=== PATIENT | female | born 1935 | race Hispanic/Latino ===

== ENCOUNTER 2020-10-07 00:07 | Inpatient (IN) | payer MEDICARE ==
[~2020-10-07] VITALS: Ht 152.4 cm; Wt 68.0 kg
[2020-10-07 01:36] LABS: BASOPHILS % (AUTO) 0.3 % (0.0-5.0); LYMPHOCYTES % (AUTO) 7.2 % (21.0-51.0); MEAN CORPUSCULAR HEMOGLOBIN 30.8 pg (27.0-33.0); MEAN CORPUSCULAR HGB CONC 31.8 g/dL (32.0-36.0); MEAN CORPUSCULAR VOLUME 96.8 fL (79-99); MONOCYTES % (AUTO) 8.6 % (3.0-13.0); NEUTROPHILS % (AUTO) 83.4 % (40.0-77.0); PLATELET COUNT (AUTO) 174 K/uL (130-400); RED BLOOD CELL COUNT(AUTO) 3.41 MIL/uL (4.00-5.50); RED CELL DISTRIBUTION WIDTH 13.3 % (11.0-15.5); WHITE BLOOD COUNT (AUTO) 12.2 K/uL (4.8-10.8)
[2020-10-07 01:42] LABS: APPEARANCE,URINE Clear (CLEAR); BILIRUBIN,URINE Small (NEGATIVE); COLOR,URINE Dark Yellow (YELLOW); GLUCOSE, URINE (UA) Negative (NEGATIVE); KETONES,URINE Trace mg/dL (NEGATIVE); LEUKOCYTE ESTERASE ,URINE Moderate (NEGATIVE); NITRATE,URINE Negative (NEGATIVE); OCCULT BLOOD,URINE Negative (NEGATIVE); PH,URINE 5.5 (5.0-8.0); PROTEIN,URINE POS 2+ mg/dL (NEGATIVE)
[2020-10-07 01:46] LABS: CREATININE 1.2 mg/dL (0.5-1.5); POTASSIUM 3.6 mmol/L (3.5-5.1)
[2020-10-07 01:56] LABS: RBC,URINE 0-1 /HPF (0-1)
[2020-10-07 01:56] LABS: ALBUMIN 3.5 g/dL (3.5-5.0); BILIRUBIN,TOTAL 1.1 mg/dL (0.2-1.0); TOTAL PROTEIN, SERUM 7.3 g/dL (6.0-8.3)
[2020-10-07 01:57] LABS: BACTERIA,URINE Rare /HPF (None Seen); SQUAMOUS EPITHELIAL CELL,UR Moderate /HPF (0-2)
[2020-10-07] MEDS ORDERED: EZET-57 PO (02:19)
[2020-10-07] MEDS ORDERED: METO-391 PO (02:21)
[2020-10-07] MEDS ORDERED: FURO20TA4 PO (02:21)
[2020-10-07] MEDS ORDERED: ISOS30TA92 PO (02:22)
[2020-10-07] MEDS ORDERED: LEVO75CA5 PO (02:24)
[2020-10-07] MEDS ORDERED: ERGO500093 PO (02:24)
[2020-10-07] MEDS ORDERED: RANO500T6 PO (02:25)
[2020-10-07] MEDS ORDERED: ASPI-1197 PO (02:26)
[2020-10-07] MEDS ORDERED: PANT40TA54 PO (02:26)
[2020-10-07] MEDS ORDERED: IOHEXOL-350 75 ML VIAL IV ONE (03:00)
[2020-10-07 06:20] VITALS: BP 128/85
[2020-10-07] MEDS ORDERED: LACTULOSE 20 GM/30 ML UDCUP PO PRN (07:00)
[2020-10-07] MEDS ORDERED: ONDANSETRON 4MG INJ IV PRN (07:00)
[2020-10-07] MEDS ORDERED: ACETAMINOPHEN 325 MG TAB PO PRN ×2 (07:00)
[2020-10-07] MEDS ORDERED: MORPHINE 2 MG SYG IV PRN (07:00)
[2020-10-07 07:44] LABS: INR 1.23 (0.85-1.15); PROTHROMBIN TIME 13.2 SEC (9.6-11.6)
[2020-10-07 07:45] LABS: PARTIAL THROMBOPLASTIN TIME 27.6 SEC (26.3-35.5)
[2020-10-07] MEDS: PANTOPRAZOLE 40 MG/VIAL IVP SCH ×3 (07:58→14:07)
[2020-10-07 08:06] VITALS: BP 120/75
[2020-10-07 08:16] LABS: HEMOGLOBIN A1C 5.7 % (4.0-6.0)
[2020-10-07 10:27] VITALS: BP 120/75
[2020-10-07] MEDS: 0.9%NACL 1000ML 1,000 ML IV SCH ×2 (11:04→15:42)
[2020-10-07 12:00] VITALS: BP 118/66
[2020-10-07] MEDS ORDERED: 0.9%NACL 50ML 50 ML IV ONE (12:58)
[2020-10-07] MEDS: ZOSYN 3.375GM+NS 50ML 50 ML IV SCH ×2 (14:01→23:00)
[2020-10-07 15:48] LABS: CRP QUANTITATIVE 97.6 mg/L (0.00-9.0)
[2020-10-07 16:08] VITALS: BP 106/80
[2020-10-07 16:34] LABS: HEMATOCRIT 30.9 % (36-48)
[2020-10-07 19:35] VITALS: BP 118/56
[2020-10-08] VITALS (8 sets, daily range): BP systolic 120–139; BP diastolic 60–94
[2020-10-08] MEDS ORDERED: 0.9%NACL 100ML 100 ML ONE (01:34)
[2020-10-08] MEDS ORDERED: IOHEXOL 350 MG/ML 100ML INFUS..BTL IV ONE (06:53)
[2020-10-08 07:39] LABS: BASOPHILS % (AUTO) 0.3 % (0.0-5.0); EOSINOPHILS % (AUTO) 0.1 % (0.0-8.0); HEMATOCRIT 32.7 % (36-48); LYMPHOCYTES % (AUTO) 15.5 % (21.0-51.0); MEAN CORPUSCULAR HEMOGLOBIN 29.9 pg (27.0-33.0); MEAN CORPUSCULAR HGB CONC 30.6 g/dL (32.0-36.0); MEAN CORPUSCULAR VOLUME 97.9 fL (79-99); MONOCYTES % (AUTO) 8.9 % (3.0-13.0); PLATELET COUNT (AUTO) 157 K/uL (130-400); RED BLOOD CELL COUNT(AUTO) 3.34 MIL/uL (4.00-5.50); RED CELL DISTRIBUTION WIDTH 13.4 % (11.0-15.5); WHITE BLOOD COUNT (AUTO) 8.9 K/uL (4.8-10.8)
[2020-10-08] MEDS: ZOSYN 3.375GM+NS 50ML 50 ML IV SCH ×3 (07:58→21:00)
[2020-10-08 08:00] LABS: CREATININE 1.1 mg/dL (0.5-1.5); POTASSIUM 3.8 mmol/L (3.5-5.1)
[2020-10-08 10:07] LABS: CRP QUANTITATIVE 119.8 mg/L (0.00-9.0)
[2020-10-08 15:34] LABS: HEMATOCRIT 30.5 % (36-48)
[2020-10-08] MEDS ORDERED: 0.9%NACL 1000ML 1,000 ML IV ONE (16:23)
[2020-10-08] MEDS ORDERED: 0.9%NACL 50ML 50 ML IV ONE (16:23)
[2020-10-08] MEDS: SIMVASTATIN PO SCH (16:30)
[2020-10-08] MEDS: EZETIMIBE PO SCH (16:30)
[2020-10-08] MEDS: RANOLAZINE 500 MG TAB.SR.12H PO SCH (21:00)
[2020-10-08] MEDS ORDERED: ENOXAPARIN SODIUM 40 MG/0.4 ML SYRINGE SQ SCH (21:00)
[2020-10-08] MEDS: METOPROLOL SUCCINATE 50 MG TAB.SR.24H PO SCH (21:00)
[2020-10-08] MEDS: DOCUSATE SODIUM 100 MG CAP PO SCH (21:00)
[2020-10-09] VITALS (9 sets, daily range): BP systolic 97–128; BP diastolic 40–75
[2020-10-09] MEDS: ZOSYN 3.375GM+NS 50ML 50 ML IV SCH ×3 (05:00→20:31)
[2020-10-09 05:37] LABS: BASOPHILS % (AUTO) 0.3 % (0.0-5.0); EOSINOPHILS % (AUTO) 0.1 % (0.0-8.0); LYMPHOCYTES % (AUTO) 16.1 % (21.0-51.0); MEAN CORPUSCULAR HEMOGLOBIN 30.2 pg (27.0-33.0); MEAN CORPUSCULAR HGB CONC 31.6 g/dL (32.0-36.0); MEAN CORPUSCULAR VOLUME 95.7 fL (79-99); MONOCYTES % (AUTO) 9.9 % (3.0-13.0); NEUTROPHILS % (AUTO) 73.1 % (40.0-77.0); NUCLEATED RED BLOOD CELLS 0.3 % (0.0-0.19); PLATELET COUNT (AUTO) 163 K/uL (130-400); RED BLOOD CELL COUNT(AUTO) 3.24 MIL/uL (4.00-5.50); RED CELL DISTRIBUTION WIDTH 13.7 % (11.0-15.5); WHITE BLOOD COUNT (AUTO) 7.4 K/uL (4.8-10.8)
[2020-10-09] MEDS ORDERED: 0.9%NACL 50ML 50 ML IV ONE (05:49)
[2020-10-09 05:52] LABS: BILIRUBIN,TOTAL 1.3 mg/dL (0.2-1.0); CREATININE 0.9 mg/dL (0.5-1.5); CRP QUANTITATIVE 108.2 mg/L (0.00-9.0); POTASSIUM 3.9 mmol/L (3.5-5.1); TOTAL PROTEIN, SERUM 6.8 g/dL (6.0-8.3)
[2020-10-09] MEDS ORDERED: LEVOTHYROXINE 75 MCG TABLET PO SCH (09:00)
[2020-10-09] MEDS: METOPROLOL SUCCINATE 50 MG TAB.SR.24H PO SCH ×2 (09:08→20:30)
[2020-10-09] MEDS: RANOLAZINE 500 MG TAB.SR.12H PO SCH ×2 (09:08→20:30)
[2020-10-09] MEDS: ISOSORBIDE MONO 30MG SR TAB PO SCH (09:08)
[2020-10-09] MEDS: ASPIRIN 81MG CHEW TAB PO SCH (09:08)
[2020-10-09] MEDS: DOCUSATE SODIUM 100 MG CAP PO SCH ×2 (09:08→20:30)
[2020-10-09] MEDS: PANTOPRAZOLE 40 MG TAB DR PO SCH (09:08)
[2020-10-09] MEDS ORDERED: LIDOCAINE 5% TOPICAL PATCH TP SCH (15:00)
[2020-10-09 15:35] LABS: HEMATOCRIT 27.5 % (36-48)
[2020-10-09] MEDS: EZETIMIBE PO SCH (16:30)
[2020-10-09] MEDS: SIMVASTATIN PO SCH (16:30)
[2020-10-09] MEDS ORDERED: ENOXAPARIN SODIUM 30 MG/0.3 ML SQ SCH (21:00)
[2020-10-09] MEDS ORDERED: ENOXAPARIN SODIUM 40 MG/0.4 ML SYRINGE SQ SCH (21:00)
[2020-10-10 04:00] VITALS: BP 95/58
[2020-10-10] MEDS: ZOSYN 3.375GM+NS 50ML 50 ML IV SCH ×3 (04:15→20:35)
[2020-10-10] MEDS: LEVOTHYROXINE 75 MCG TABLET PO SCH (05:31)
[2020-10-10 05:40] LABS: BASOPHILS % (AUTO) 0.5 % (0.0-5.0); EOSINOPHILS % (AUTO) 0.2 % (0.0-8.0); MEAN CORPUSCULAR HEMOGLOBIN 30.5 pg (27.0-33.0); MEAN CORPUSCULAR VOLUME 98.4 fL (79-99); MONOCYTES % (AUTO) 11.3 % (3.0-13.0); NEUTROPHILS % (AUTO) 69.5 % (40.0-77.0); PLATELET COUNT (AUTO) 174 K/uL (130-400); RED BLOOD CELL COUNT(AUTO) 3.15 MIL/uL (4.00-5.50); RED CELL DISTRIBUTION WIDTH 13.8 % (11.0-15.5); WHITE BLOOD COUNT (AUTO) 6.2 K/uL (4.8-10.8)
[2020-10-10 08:07] VITALS: BP 125/78
[2020-10-10 09:05] LABS: % IRON SATURATION 11.3 % (22-44)
[2020-10-10 09:17] LABS: INR 1.34 (0.85-1.15); PROTHROMBIN TIME 14.2 SEC (9.6-11.6)
[2020-10-10 09:19] LABS: PARTIAL THROMBOPLASTIN TIME 30.3 SEC (26.3-35.5)
[2020-10-10] MEDS: METOPROLOL SUCCINATE 50 MG TAB.SR.24H PO SCH ×2 (10:08→20:35)
[2020-10-10] MEDS: ISOSORBIDE MONO 30MG SR TAB PO SCH (10:08)
[2020-10-10] MEDS: RANOLAZINE 500 MG TAB.SR.12H PO SCH ×2 (10:08→20:35)
[2020-10-10] MEDS: DOCUSATE SODIUM 100 MG CAP PO SCH ×2 (10:08→20:35)
[2020-10-10] MEDS: PANTOPRAZOLE 40 MG TAB DR PO SCH (10:08)
[2020-10-10] MEDS: ASPIRIN 81MG CHEW TAB PO SCH (10:08)
[2020-10-10] MEDS ORDERED: ENOXAPARIN SODIUM 30 MG/0.3 ML SQ SCH ×2 (10:30→21:00)
[2020-10-10 11:49] VITALS: BP 113/60
[2020-10-10] MEDS ORDERED: LIDOCAINE 5% TOPICAL PATCH TP SCH (16:00)
[2020-10-10] MEDS: EZETIMIBE PO SCH (16:30)
[2020-10-10] MEDS: SIMVASTATIN PO SCH (16:30)
[2020-10-10 16:56] VITALS: BP 113/55
[2020-10-10 20:00] VITALS: BP 106/73
[2020-10-11] VITALS: BP 104/63
[2020-10-11 04:00] VITALS: BP 128/69
[2020-10-11] MEDS: ZOSYN 3.375GM+NS 50ML 50 ML IV SCH ×3 (04:29→19:47)
[2020-10-11] MEDS: LEVOTHYROXINE 75 MCG TABLET PO SCH (06:03)
[2020-10-11 07:33] LABS: BASOPHILS % (AUTO) 0.4 % (0.0-5.0); EOSINOPHILS % (AUTO) 1.9 % (0.0-8.0); HEMATOCRIT 29.6 % (36-48); LYMPHOCYTES % (AUTO) 19.7 % (21.0-51.0); MEAN CORPUSCULAR HEMOGLOBIN 30.3 pg (27.0-33.0); MEAN CORPUSCULAR HGB CONC 31.8 g/dL (32.0-36.0); MEAN CORPUSCULAR VOLUME 95.5 fL (79-99); MONOCYTES % (AUTO) 10.4 % (3.0-13.0); PLATELET COUNT (AUTO) 160 K/uL (130-400); RED CELL DISTRIBUTION WIDTH 13.8 % (11.0-15.5); WHITE BLOOD COUNT (AUTO) 5.3 K/uL (4.8-10.8)
[2020-10-11 07:53] LABS: ALBUMIN 2.7 g/dL (3.5-5.0); BILIRUBIN,TOTAL 0.9 mg/dL (0.2-1.0); CREATININE 1.1 mg/dL (0.5-1.5); POTASSIUM 3.5 mmol/L (3.5-5.1); TOTAL PROTEIN, SERUM 6.1 g/dL (6.0-8.3)
[2020-10-11 08:00] VITALS: BP 125/77
[2020-10-11] MEDS: METOPROLOL SUCCINATE 50 MG TAB.SR.24H PO SCH ×2 (08:34→19:47)
[2020-10-11] MEDS: DOCUSATE SODIUM 100 MG CAP PO SCH ×2 (08:34→19:46)
[2020-10-11] MEDS: PANTOPRAZOLE 40 MG TAB DR PO SCH (08:35)
[2020-10-11] MEDS: ISOSORBIDE MONO 30MG SR TAB PO SCH (08:35)
[2020-10-11] MEDS: RANOLAZINE 500 MG TAB.SR.12H PO SCH ×2 (08:35→19:46)
[2020-10-11] MEDS: ASPIRIN 81MG CHEW TAB PO SCH (08:35)
[2020-10-11] MEDS: ENOXAPARIN SODIUM 40 MG/0.4 ML SYRINGE SQ SCH (11:03)
[2020-10-11 12:00] VITALS: BP 122/76
[2020-10-11] MEDS: EZETIMIBE PO SCH (15:47)
[2020-10-11] MEDS: SIMVASTATIN PO SCH (15:47)
[2020-10-11 16:00] VITALS: BP 125/71
[2020-10-11 20:00] VITALS: BP 109/68
[2020-10-12] VITALS (7 sets, daily range): BP systolic 102–144; BP diastolic 57–80
[2020-10-12] MEDS: ZOSYN 3.375GM+NS 50ML 50 ML IV SCH ×3 (03:50→19:25)
[2020-10-12] MEDS ORDERED: LIDOCAINE HCL-MPF 1% 2ML VIAL IV PRN (04:30)
[2020-10-12] MEDS ORDERED: POTASSIUM CHLORIDE 20MEQ/100ML 100 ML IV PRN (04:30)
[2020-10-12] MEDS ORDERED: POTASSIUM CHLORIDE 10% ELIXIR 20 MEQ/15 ML UDCUP PO PRN (04:30)
[2020-10-12] MEDS: KCL 20 MEQ ERTAB PO PRN ×3 (04:48→19:26)
[2020-10-12] MEDS: LEVOTHYROXINE 75 MCG TABLET PO SCH (04:48)
[2020-10-12 06:01] LABS: BASOPHILS % (AUTO) 0.4 % (0.0-5.0); EOSINOPHILS % (AUTO) 0.4 % (0.0-8.0); HEMATOCRIT 31.3 % (36-48); LYMPHOCYTES % (AUTO) 23.1 % (21.0-51.0); MEAN CORPUSCULAR HEMOGLOBIN 30.1 pg (27.0-33.0); MEAN CORPUSCULAR VOLUME 97.2 fL (79-99); NEUTROPHILS % (AUTO) 63.5 % (40.0-77.0); PLATELET COUNT (AUTO) 176 K/uL (130-400); RED BLOOD CELL COUNT(AUTO) 3.22 MIL/uL (4.00-5.50); RED CELL DISTRIBUTION WIDTH 13.7 % (11.0-15.5); WHITE BLOOD COUNT (AUTO) 5.4 K/uL (4.8-10.8)
[2020-10-12 06:19] LABS: CREATININE 1.1 mg/dL (0.5-1.5); POTASSIUM 3.3 mmol/L (3.5-5.1)
[2020-10-12] MEDS: METOPROLOL SUCCINATE 50 MG TAB.SR.24H PO SCH ×2 (08:58→19:25)
[2020-10-12] MEDS: RANOLAZINE 500 MG TAB.SR.12H PO SCH ×2 (08:58→19:25)
[2020-10-12] MEDS: DOCUSATE SODIUM 100 MG CAP PO SCH ×2 (08:58→19:25)
[2020-10-12] MEDS: ASPIRIN 81MG CHEW TAB PO SCH (08:58)
[2020-10-12] MEDS: ISOSORBIDE MONO 30MG SR TAB PO SCH (08:59)
[2020-10-12] MEDS: PANTOPRAZOLE 40 MG TAB DR PO SCH (08:59)
[2020-10-12] MEDS: ENOXAPARIN SODIUM 40 MG/0.4 ML SYRINGE SQ SCH (09:05)
[2020-10-12] MEDS: EZETIMIBE PO SCH (16:30)
[2020-10-12] MEDS: SIMVASTATIN PO SCH (16:30)
[2020-10-13] MEDS: ZOSYN 3.375GM+NS 50ML 50 ML IV SCH ×2 (03:26→14:25)
[2020-10-13 03:41] VITALS: BP 106/54
[2020-10-13] MEDS: LEVOTHYROXINE 75 MCG TABLET PO SCH (04:29)
[2020-10-13 04:47] LABS: BASOPHILS % (AUTO) 0.4 % (0.0-5.0); EOSINOPHILS % (AUTO) 1.9 % (0.0-8.0); HEMATOCRIT 30.5 % (36-48); LYMPHOCYTES % (AUTO) 21.5 % (21.0-51.0); MEAN CORPUSCULAR HEMOGLOBIN 30.1 pg (27.0-33.0); MEAN CORPUSCULAR HGB CONC 30.8 g/dL (32.0-36.0); MEAN CORPUSCULAR VOLUME 97.8 fL (79-99); MONOCYTES % (AUTO) 10.5 % (3.0-13.0); NEUTROPHILS % (AUTO) 65.3 % (40.0-77.0); PLATELET COUNT (AUTO) 185 K/uL (130-400); RED BLOOD CELL COUNT(AUTO) 3.12 MIL/uL (4.00-5.50); WHITE BLOOD COUNT (AUTO) 5.3 K/uL (4.8-10.8)
[2020-10-13 05:20] LABS: ALBUMIN 2.7 g/dL (3.5-5.0); BILIRUBIN,TOTAL 0.9 mg/dL (0.2-1.0); POTASSIUM 4.3 mmol/L (3.5-5.1); TOTAL PROTEIN, SERUM 6.1 g/dL (6.0-8.3)
[2020-10-13 07:32] VITALS: BP 121/73
[2020-10-13] MEDS: METOPROLOL SUCCINATE 50 MG TAB.SR.24H PO SCH ×2 (08:56→20:59)
[2020-10-13] MEDS: ASPIRIN 81MG CHEW TAB PO SCH (08:56)
[2020-10-13] MEDS: ISOSORBIDE MONO 30MG SR TAB PO SCH (08:56)
[2020-10-13] MEDS: PANTOPRAZOLE 40 MG TAB DR PO SCH (08:56)
[2020-10-13] MEDS: DOCUSATE SODIUM 100 MG CAP PO SCH ×2 (08:57→20:56)
[2020-10-13] MEDS: RANOLAZINE 500 MG TAB.SR.12H PO SCH ×2 (08:57→20:56)
[2020-10-13 11:13] VITALS: BP 117/71
[2020-10-13 16:02] VITALS: BP 124/53
[2020-10-13] MEDS: EZETIMIBE PO SCH (16:30)
[2020-10-13] MEDS: SIMVASTATIN PO SCH (16:30)
[2020-10-13 20:16] VITALS: BP 114/72
[2020-10-14] VITALS (7 sets, daily range): BP systolic 117–138; BP diastolic 69–81
[2020-10-14] MEDS: LEVOTHYROXINE 75 MCG TABLET PO SCH (06:25)
[2020-10-14] MEDS: DOCUSATE SODIUM 100 MG CAP PO SCH ×2 (09:35→20:08)
[2020-10-14] MEDS: PANTOPRAZOLE 40 MG TAB DR PO SCH (09:35)
[2020-10-14] MEDS: METOPROLOL SUCCINATE 50 MG TAB.SR.24H PO SCH ×2 (09:35→20:08)
[2020-10-14] MEDS: ASPIRIN 81MG CHEW TAB PO SCH (09:35)
[2020-10-14] MEDS: RANOLAZINE 500 MG TAB.SR.12H PO SCH ×2 (09:35→20:08)
[2020-10-14] MEDS: CYANOCOBALAMIN (VITAMIN B-12) 1,000 MCG TABLET PO SCH (09:35)
[2020-10-14] MEDS: FOLIC ACID 1 MG TABLET PO SCH (09:36)
[2020-10-14] MEDS: ISOSORBIDE MONO 30MG SR TAB PO SCH (09:36)
[2020-10-14] MEDS: EZETIMIBE PO SCH (16:30)
[2020-10-14] MEDS: SIMVASTATIN PO SCH (16:30)
[2020-10-15 03:58] VITALS: BP 128/75
[2020-10-15] MEDS: LEVOTHYROXINE 75 MCG TABLET PO SCH (06:06)
[2020-10-15 07:03] LABS: BASOPHILS % (AUTO) 0.2 % (0.0-5.0); EOSINOPHILS % (AUTO) 0.2 % (0.0-8.0); LYMPHOCYTES % (AUTO) 27.8 % (21.0-51.0); MEAN CORPUSCULAR HEMOGLOBIN 30.5 pg (27.0-33.0); MEAN CORPUSCULAR HGB CONC 31.3 g/dL (32.0-36.0); MEAN CORPUSCULAR VOLUME 97.6 fL (79-99); MONOCYTES % (AUTO) 12.6 % (3.0-13.0); NEUTROPHILS % (AUTO) 58.7 % (40.0-77.0); NUCLEATED RED BLOOD CELLS 0.5 % (0.0-0.19); PLATELET COUNT (AUTO) 211 K/uL (130-400); RED BLOOD CELL COUNT(AUTO) 3.28 MIL/uL (4.00-5.50); RED CELL DISTRIBUTION WIDTH 14.3 % (11.0-15.5); WHITE BLOOD COUNT (AUTO) 6.1 K/uL (4.8-10.8)
[2020-10-15 08:00] VITALS: BP 116/84
[2020-10-15] MEDS ORDERED: FUROSEMIDE 20 MG TABLET PO SCH (09:00)
[2020-10-15] MEDS: PANTOPRAZOLE 40 MG TAB DR PO SCH (09:30)
[2020-10-15] MEDS: ISOSORBIDE MONO 30MG SR TAB PO SCH (09:30)
[2020-10-15] MEDS: CYANOCOBALAMIN (VITAMIN B-12) 1,000 MCG TABLET PO SCH (09:30)
[2020-10-15] MEDS: FOLIC ACID 1 MG TABLET PO SCH (09:30)
[2020-10-15] MEDS: METOPROLOL SUCCINATE 50 MG TAB.SR.24H PO SCH (09:30)
[2020-10-15] MEDS: ASPIRIN 81MG CHEW TAB PO SCH (09:30)
[2020-10-15] MEDS: DOCUSATE SODIUM 100 MG CAP PO SCH (09:30)
[2020-10-15] MEDS: RANOLAZINE 500 MG TAB.SR.12H PO SCH (09:30)
[2020-10-15 12:00] VITALS: BP 121/58
[2020-10-15] MEDS ORDERED: ENOXAPARIN SODIUM 30 MG/0.3 ML SQ SCH (14:00)
[2020-10-15] MEDS ORDERED: CYAN-52 PO (15:08)
[2020-10-15] MEDS ORDERED: FOLI1 PO (15:08)
[2020-10-15] MEDS: EZETIMIBE PO SCH (16:30)
[2020-10-15] MEDS: SIMVASTATIN PO SCH (16:30)
== END 2020-10-15 18:59 | disposition home or self-care (01) | DRG 177 ==
LOC: EDH 00:07 → INTOOBSV 06:37 → OBSVTOIN 06:37 → EDHIP 06:37 → 4AH 10-09 08:11
PROVIDERS: ADMIT Hospitalist; ATTEND Hospitalist
DX: U07.1 COVID-19 (principal); J12.82 Pneumonia due to coronavirus disease 2019; D68.59 Other primary thrombophilia; E87.1 Hypo-osmolality and hyponatremia; I50.42 Chronic combined systolic (congestive) and diastolic (congestive) heart failure; I42.9 Cardiomyopathy, unspecified; K57.90 Diverticulosis of intestine, part unspecified, without perforation or abscess without bleeding; D73.5 Infarction of spleen; E03.9 Hypothyroidism, unspecified; I11.0 Hypertensive heart disease with heart failure; F41.9 Anxiety disorder, unspecified; E78.5 Hyperlipidemia, unspecified; R13.10 Dysphagia, unspecified; I08.3 Combined rheumatic disorders of mitral, aortic and tricuspid valves; D50.9 Iron deficiency anemia, unspecified; E78.00 Pure hypercholesterolemia, unspecified; Z96.653 Presence of artificial knee joint, bilateral; Z90.49 Acquired absence of other specified parts of digestive tract; Z86.73 Personal history of transient ischemic attack (TIA), and cerebral infarction without residual deficits
CPT/HCPCS: 36415; 71045; 71275; 74177; 76775; 80048; 80053; 81001; 82150; 82270; 82550; 82728; 82948; 83036; 83540; 83550; 83615; 83690; 84145; 84484; 85014; 85018; 85025; 85378; 85384; 85610; 85730; 86140; 87088; 87635; 93005; 93306; 93356; 93970; 94760; C9113; G0378; J1650; J2405; J2543; J7030; Q9967